=== PATIENT | female | born 1990 | race African-American/Black ===

== ENCOUNTER 2024-08-21 15:30 | Inpatient (IN) | payer BC, OTHER ==
[2024-08-21] MEDS ORDERED: DINOPROSTONE 10 MG VAGINAL SUPPOSITORY VG ONE (16:30)
[2024-08-21] MEDS: ELECTROLYTE-148 SOLN 1,000 ML IV SCH (17:15)
[2024-08-21 17:48] VITALS: BMI 37.4
[2024-08-21] MEDS ORDERED: PROMETHAZINE HCL 25 MG/1 ML VIAL ONE (20:33)
[2024-08-21] MEDS ORDERED: BUTORPHANOL TARTRATE 2 MG/ML VIAL ONE (20:33)
[2024-08-21 20:36] LABS: BASO % 0.5 % (0-2.0); HEMATOCRIT 36.9 % (32.4-45.2); HEMOGLOBIN 12.4 GM/dL (10.7-15.3); LYMPH % 20.8 % (8-40); MCHC 33.6 g/dl (32.0-36.0); MEAN CELL VOLUME 92.3 fl (80-96); MEAN PLT VOLUME 9.5 fl (7.5-11.1); MONO % 6.7 % (3.8-10.2); PLATELET COUNT 213 10^3/uL (134-434); RDW 13.4 % (11.6-15.6)
[2024-08-21] MEDS: BUTORPHANOL TARTRATE 1 MG/ML VIAL IVPUSH ONE (20:45)
[2024-08-21] MEDS: PROMETHAZINE HCL 25 MG/1 ML VIAL IVPB ONE (20:45)
[2024-08-21 20:58] LABS: INR 0.84 (0.83-1.09); PROTHROMBIN TIME (PATIENT) 9.7 SEC (9.7-13.0)
[2024-08-21 21:00] LABS: BLOOD UREA NITROGEN 8.7 mg/dL (7-18)
[2024-08-21 21:01] LABS: ACTIVATED PTT 27.2 SECONDS (25.2-36.5)
[2024-08-21 21:03] LABS: CREATININE 0.5 mg/dL (0.55-1.3)
[2024-08-21] MEDS ORDERED: OXYTOCIN 30 UNITS in 0.9% NS 30 UNIT/500 ML INFUS.BAG IVPB ONE (21:16)
[2024-08-21] MEDS: OXYTOCIN 30 UNITS in 0.9% NS 30 UNIT/500 ML INFUS.BAG IVPB SCH (21:50)
[2024-08-21] MEDS ORDERED: FENTANYL/BUPIVACAINE/NS/PF - PCEA - 50 ML DISP.SYRIN EP ONE (23:57)
[2024-08-22] MEDS: FENTANYL/BUPIVACAINE/NS/PF - PCEA - 50 ML DISP.SYRIN EP SCH (00:25)
[2024-08-22] MEDS ORDERED: PHENYLEPHRINE HCL 10 MG/1 ML SINGLE DOSE VIAL ONE ×2 (00:28→17:09)
[2024-08-22] MEDS ORDERED: NALOXONE HCL 0.4 MG/ML VIAL IVPUSH PRN (00:41)
[2024-08-22] MEDS ORDERED: SODIUM CHLORIDE 100 ML IVPB ONE ×2 (00:58→04:57)
[2024-08-22] MEDS ORDERED: AMPICILLIN SODIUM 2 GM VIAL ONE (00:58)
[2024-08-22] MEDS: AMPICILLIN - 2 GM in SODIUM CHLORIDE 100 ML IVPB ONE (01:00)
[2024-08-22] MEDS ORDERED: AMPICILLIN SODIUM 1 GM VIAL ONE ×3 (04:57→13:17)
[2024-08-22] MEDS: AMPICILLIN - 1 GM in SODIUM CHLORIDE 100 ML IVPB SCH (05:00)
[2024-08-22] MEDS ORDERED: FENTANYL/BUPIVACAINE/NS/PF - PCEA - 50 ML DISP.SYRIN EP ONE ×3 (05:14→15:43)
[2024-08-22 12:50] LABS: RETICULOCYTES 2.39 % (0.5-1.5)
[2024-08-22] MEDS: CITRIC ACID/SODIUM CITRATE 30 ML UNIT-DOSE CUP PO ONE (16:25)
[2024-08-22] MEDS ORDERED: ACETAMINOPHEN 325 MG TABLET (FP) PO PRN (16:49)
[2024-08-22] MEDS ORDERED: ONDANSETRON 4 MG/2 ML VIAL IVPUSH PRN (16:49)
[2024-08-22] MEDS ORDERED: IBUPROFEN 600 MG TABLET (FP) PO PRN (16:49)
[2024-08-22] MEDS ORDERED: morphine SULFATE/PF 1 MG/2 ML (2cc Syringe - QUVA) ONE (16:51)
[2024-08-22] MEDS ORDERED: ceFAZolin SODIUM 1 GM VIAL ONE (16:52)
[2024-08-22] MEDS ORDERED: SODIUM CHLORIDE 0.9% P/F 10 ML VIAL IJ ONE ×2 (16:52→17:09)
[2024-08-22] MEDS ORDERED: ELECTROLYTE-148 SOLN 1,000 ML IV SCH (17:00)
[2024-08-22] MEDS ORDERED: METHYLERGONOVINE MALEATE 0.2 MG/1 ML AMP IM PRN (17:14)
[2024-08-22] MEDS ORDERED: ONDANSETRON 4 MG/2 ML VIAL ONE (17:38)
[2024-08-22] MEDS ORDERED: METOCLOPRAMIDE HCL INJECTION 10 MG/2 ML VIAL ONE (17:38)
[2024-08-22] MEDS ORDERED: MIDAZOLAM HCL 2 MG/2 ML SINGLE DOSE VIAL ONE (17:39)
[2024-08-22 18:09] LABS: CORD HCO3 25.1 mmHg (20-29); CORD PCO2 53.8 mmHg (30-78); CORD pH 7.287 (7.14-7.44)
[2024-08-22 18:15] LABS: CORD BASE EXCESS -0.2 mmol/L (0-2); CORD HCO3 25.5 mmHg (20-29); CORD PCO2 45.5 mmHg (30-78); CORD pH 7.367 (7.14-7.44)
[2024-08-22] MEDS ORDERED: OXYTOCIN 10 UNITS/ML VIAL ONE (18:38)
[2024-08-22] MEDS ORDERED: OXYTOCIN 20 UNITS in 0.9% NS 20 UNIT/1,000 ML INFUS.BAG IV ONE (19:55)
[2024-08-22] MEDS: OXYTOCIN 20 UNITS in 0.9% NS 20 UNIT/1,000 ML INFUS.BAG IV SCH (19:55)
[2024-08-22] MEDS ORDERED: ACETAMINOPHEN INJECTION 100 ML ONE (20:02)
[2024-08-22] MEDS: ACETAMINOPHEN 1000 MG/100 ML BAG IVPB PRN (20:03)
[2024-08-22] MEDS: ELECTROLYTE-148 SOLN 500 ML IV SCH (22:54)
[2024-08-22] MEDS: morphine SULFATE/PF 1 MG/2 ML (2cc Syringe - QUVA) EP ONE (22:56)
[2024-08-23] MEDS: CEFAZOLIN 1 GM in DEXTROSE 5%-WATER - 50 ML IVPB SCH (01:50)
[2024-08-23] MEDS: SIMETHICONE 80 MG TAB.CHEW (FP) PO PRN (03:58)
[2024-08-23] MEDS ORDERED: oxyCODONE HCL 5 MG TABLET PO PRN (05:14)
[2024-08-23 07:16] LABS: BASO % 0.4 % (0-2.0); EOS % 0.5 % (0-4.5); HEMATOCRIT 33.3 % (32.4-45.2); HEMOGLOBIN 10.7 GM/dL (10.7-15.3); LYMPH % 13.8 % (8-40); MCH 30.5 pg (25.7-33.7); MCHC 32.1 g/dl (32.0-36.0); MEAN CELL VOLUME 94.9 fl (80-96); MEAN PLT VOLUME 9.3 fl (7.5-11.1); MONO % 7.8 % (3.8-10.2); NEUT % 77.5 % (42.8-82.8); PLATELET COUNT 171 10^3/uL (134-434); RBC 3.51 M/mm3 (3.60-5.2); RDW 13.5 % (11.6-15.6); WHITE BLOOD COUNT 14.4 K/mm3 (4.0-10.0)
[2024-08-23] MEDS: IBUPROFEN 600 MG TABLET (FP) PO PRN (08:44)
[2024-08-23] MEDS: ENOXAPARIN NA (PORCINE) 40 MG/0.4 ML DISP.SYRIN SQ SCH (09:07)
[2024-08-23] MEDS ORDERED: BISACODYL 10 MG SUPP.RECT PR PRN (13:25)
[2024-08-23] MEDS ORDERED: BISACODYL 10 MG SUPP.RECT RC PRN (17:14)
[2024-08-24] MEDS: ACETAMINOPHEN 325 MG TABLET (FP) PO PRN (09:22)
[2024-08-24 10:56] LABS: POC NITRAZINE NEG
[2024-08-25 07:49] LABS: BASO % 0.4 % (0-2.0); EOS % 2.9 % (0-4.5); HEMATOCRIT 34.9 % (32.4-45.2); HEMOGLOBIN 11.5 GM/dL (10.7-15.3); LYMPH % 22.2 % (8-40); MCH 31.1 pg (25.7-33.7); MEAN CELL VOLUME 94.3 fl (80-96); MEAN PLT VOLUME 8.9 fl (7.5-11.1); MONO % 5.8 % (3.8-10.2); NEUT % 68.7 % (42.8-82.8); PLATELET COUNT 225 10^3/uL (134-434); RDW 13.1 % (11.6-15.6); WHITE BLOOD COUNT 9.5 K/mm3 (4.0-10.0)
[2024-08-25] MEDS: NIFEdipine E.R. 30 MG TABLET PO ONE (14:59)
[2024-08-26 08:24] VITALS: TEMP 98.3
[2024-08-26] MEDS: NIFEdipine E.R. 30 MG TABLET PO SCH (09:04)
[2024-08-26 10:42] VITALS: RESP 18
[2024-08-26 11:38] VITALS: BP 122/74; PULSE 82
== END 2024-08-26 11:10 | disposition home or self-care (01) | DRG 788 ==
LOC: JDEL 15:30 → JERBED 16:00 → JLDR 16:42 → J3W 08-22 21:15
PROVIDERS: ADMIT Obstetrics & Gynecology; ATTEND Obstetrics & Gynecology
PROC: 10D00Z1 Extraction of Products of Conception, Low, Open Approach (ICD-10-PCS; principal; 2024-08-22)
DX: O41.03X0 Oligohydramnios, third trimester, not applicable or unspecified (principal); O99.824 Streptococcus B carrier state complicating childbirth; O36.5930 Maternal care for other known or suspected poor fetal growth, third trimester, not applicable or unspecified; O62.0 Primary inadequate contractions; Z3A.38 38 weeks gestation of pregnancy; Z37.0 Single live birth
CPT/HCPCS: 36415; 36600; 80048; 82803; 82977; 83010; 83986-QW; 84450; 84460; 84550; 85025; 85032; 85045; 85610; 85730; 86780; 86850; 86900; 86901; 88307-TC; J0131